=== PATIENT | female | born 1995 | race Hispanic/Latino ===

== ENCOUNTER 2018-10-16 03:50 | Emergency (ER) | payer BC, OTHER | END 2018-10-16 04:49 | disposition home or self-care (01) | LOC: ERS 03:50 | DX: L50.0 Allergic urticaria (principal); E78.5 Hyperlipidemia, unspecified; Z79.899 Other long term (current) drug therapy ==

== ENCOUNTER 2018-10-16 20:34 | Emergency (ER) | payer BC ==
[2018-10-16 22:13] LABS: Bilirubin Negative (Negative); Blood, Urine Negative (Negative); Clarity CLEAR (Clear); Glucose, Urine (Dipstick) Negative (Negative); Leukocyte Negative (Negative); Nitrite Negative (Negative); Protein, Urine (Dipstick) Negative (Neg-Trace); Specific Gravity, Urine 1.006 (1.002-1.036); Urobilinogen 0.2 mg/dL (0.2-1.0); pH, Urine 6.5 (5.0-9.0)
[2018-10-16 22:15] LABS: Pregnancy Test - Urine (BHCG) Negative (Negative); Pregu Control Background? CLEAR/WHITE (CLR/WHITE); Pregu Control Bar Appear? YES (CONTROL BAR); Specific Gravity 1.006 (1.002-1.036)
[2018-10-16] MEDS ORDERED: Famotidine 20 MG TAB ONE (23:23)
[2018-10-16] MEDS ORDERED: methylPREDNISolone Sod Succ/PF 125 MG/2 ML VIAL ONE (23:23)
[2018-10-16] MEDS ORDERED: diphenhydrAMINE 50 MG/ML VIAL ONE (23:23)
[2018-10-16] MEDS ORDERED: Acetaminophen 500 MG TAB ONE (23:39)
== END 2018-10-17 01:05 | disposition home or self-care (01) ==
LOC: ERS 20:34
DX: R21 Rash and other nonspecific skin eruption (principal); E78.5 Hyperlipidemia, unspecified; Z79.899 Other long term (current) drug therapy
CPT/HCPCS: 81003; 81025; 96361; 96374; 96375; 99283; J1200; J2930

== ENCOUNTER 2023-09-04 09:58 | Emergency (ER) | payer SELFPAY ==
[2023-09-04] MEDS ORDERED: Acetaminophen 500 MG TAB ONE (10:20)
[2023-09-04] MEDS ORDERED: Ibuprofen 200 MG TAB ONE (10:21)
[2023-09-04 11:08] LABS: SARS-CoV-2 NAA Rapid Test Not Detected (NotDetected)
== END 2023-09-04 11:47 | disposition home or self-care (01) ==
LOC: ERS 09:58
DX: J10.1 Influenza due to other identified influenza virus with other respiratory manifestations (principal)
CPT/HCPCS: 99283